=== PATIENT | male | born 1950 | race Caucasian/White ===

== ENCOUNTER → 2017-05-05 | Outpatient (CLI) | payer OTHER ==
[~2017-05-05] MED LIST: ASPIRIN 81M81 MG/TA2 PO; ASPRIN; BENADRYL; BENADRYL PO; CARDI-OMEGA1000 MG PO; CELEBREX 200MG200 MG PO; CIALIS PO; CIALIS10 MG PO; COUMADIN5 MG PO; DURAGESIC; EC NAPROSYN500 MG PO; FLEXERIL 1010 MG/TAB PO; FLEXERIL10 MG PO; HEPARIN 50500 U/5 ML IV; HYDROCODONE PO; LIORESAL 1010 MG/TAB PO; MIRALAX 17GM PK1 PKT PO; MORPHINE 1515 MG/TAB PO; MS CONTIN30 MG PO; MS CONTIN60 MG PO; NEURONTIN100 MG/CAP PO; NORMAL SALINE F10 ML IV; SENOKOT8.6 MG PO; SUPER EPA W/BO400 MG PO; TENORMIN 2525 MG/TAB PO; TENORMIN50 MG PO; TYLENOL 325MG325 MG PO; VANCOMYCIN 11 G/VIA1 IV; ZESTRIL5 MG PO; ZOCOR20 MG PO
== END ==
LOC: COL.RAD 12:07
DX: M48.061 Spinal stenosis, lumbar region without neurogenic claudication (principal); M47.816 Spondylosis without myelopathy or radiculopathy, lumbar region; M46.86 Other specified inflammatory spondylopathies, lumbar region; M43.16 Spondylolisthesis, lumbar region

== ENCOUNTER → 2017-06-09 | Outpatient (CLI) | payer OTHER ==
[~2017-06-09] VITALS: Ht 185.4 cm; Wt 119.0 kg
[~2017-06-09] MED LIST changes: +NORCO 325 MG-51 TAB PO; +SUPER BETA PROSTATE PO
[2017-06-09 13:38] VITALS: BP 144/92; PULSE 80
[2017-06-09 14:15] VITALS: BP 143/97; PULSE 73
== END ==
LOC: COL.RAD 06-05 12:45
DX: M51.36 Other intervertebral disc degeneration, lumbar region (principal)
CPT/HCPCS: J3301

== ENCOUNTER → 2017-06-27 | Outpatient (CLI) | payer OTHER ==
[~2017-06-27] VITALS: Ht 185.4 cm; Wt 118.0 kg
[~2017-06-27] MED LIST changes: +XANAX 0.5MG0.5 MG PO
[2017-06-27 09:27] VITALS: BP 135/84; PULSE 75
[2017-06-27 10:38] VITALS: BP 146/82; PULSE 69
== END ==
LOC: COL.RAD 09:10
DX: M51.36 Other intervertebral disc degeneration, lumbar region (principal); R20.0 Anesthesia of skin
CPT/HCPCS: J3301

== ENCOUNTER → 2017-09-19 | Outpatient (CLI) | payer OTHER | LOC: COL.LAB 10:57 | DX: Z01.818 Encounter for other preprocedural examination (principal) ==

== ENCOUNTER → 2018-05-07 | Outpatient (CLI) | payer OTHER | LOC: COL.VAS 07:29 | DX: R60.0 Localized edema (principal); M79.605 Pain in left leg ==

== ENCOUNTER → 2018-06-29 | Outpatient (CLI) | payer OTHER | LOC: COL.RAD 06-12 13:00 | DX: M25.512 Pain in left shoulder (principal); Z87.39 Personal history of other diseases of the musculoskeletal system and connective tissue; Z86.14 Personal history of Methicillin resistant Staphylococcus aureus infection ==

== ENCOUNTER 2020-07-05 04:13 | Inpatient (IN) | payer OTHER, MEDICARE ==
[2020-07-05] VITALS (7 sets, daily range): BP systolic 112–149; BP diastolic 54–89; PULSE 73–100; TEMP 97.8–103.1
[~2020-07-05] VITALS: Ht 185.4 cm; Wt 127.5 kg
[2020-07-05 04:28] LABS: BASO # 0.1 (0.0-0.2); BASO % 0.5 % (0.0-2.0); EOS # 0.1 (0.0-0.7); EOS % 0.5 % (0-4.0); GRAN # 8.1 (1.4-6.5); HEMATOCRIT 51.6 % (42.0-52.0); HEMOGLOBIN 17.7 g/dl (13.5-18.0); LYMPH # 0.8 (1.2-3.4); LYMPH % 7.8 % (20.0-51.0); MEAN CELL VOLUME 86 fl (80.0-100.0); MEAN CORPUSCULAR HEMOGLOBIN 29 pg (27.0-31.0); MEAN CORPUSCULAR HGB CONC 34 g/dl (33.0-37.0); MEAN PLATELET VOLUME 9.6 fl (7.4-10.4); MONO # 0.8 (0.1-0.6); MONO % 7.9 % (1.7-9.3); PLATELET COUNT 166 K/mm3 (130-400); RED BLOOD COUNT 6.02 M/mm3 (4.20-5.60); REDCELL DISTRIBUTION WIDTH-CV 12.6 % (11.5-14.5)
[2020-07-05 04:41] LABS: ALANINE AMINOTRANSFERASE 42 U/L (4-49); ALBUMIN 4.7 gm/dL (3.5-5.0); ALKALINE PHOSPHATASE 128 U/L (50-136); ANION GAP 11 mmol/L (7-16); AST,SGOT 40 U/L (15-37); BILIRUBIN,TOTAL 0.8 mg/dL (0.0-1.0); BLOOD UREA NITROGEN 15 mg/dL (9-20); CALCIUM 9.3 mg/dL (8.4-10.2); CARBON DIOXIDE 25 mmol/L (22-30); CHLORIDE 99 mmol/L (98-107); GLUCOSE 141 mg/dL (74-106); LIPASE 49 U/L (23-300); POTASSIUM 4.7 mmol/L (3.4-5.0); SODIUM 135 mmol/L (137-145); TOTAL PROTEIN 8.1 gm/dL (6.4-8.2)
[2020-07-05 04:55] LABS: TROPONIN-I < 0.012 ng/mL (0.000-0.035)
[2020-07-05 05:41] LABS: COLLECTION METHOD CLEAN CATCH
[2020-07-05 05:54] LABS: MUCOUS Present /lpf; PH 7 (5-8); SQUAMOUS EPITHELIAL 0-2 /hpf; URINE APPEARANCE Clear; URINE BACTERIA None Seen /hpf; URINE BILIRUBIN Negative (NEGATIVE); URINE BLOOD Negative (NEGATIVE); URINE COLOR Yellow; URINE GLUCOSE Negative (NEGATIVE); URINE KETONE Negative (NEGATIVE); URINE LEUKOCYTE ESTERASE Negative (NEGATIVE); URINE NITRATE Negative (NEGATIVE); URINE PROTEIN(semi-quant) 2+ (NEGATIVE); URINE RBC 0-2 /hpf; URINE UROBILINOGEN Negative (NEGATIVE)
[2020-07-06 04:10] VITALS: BP 100/51; PULSE 61; TEMP 98.9
[2020-07-06 06:21] LABS: BASO % 0.2 % (0.0-2.0); EOS # 0.1 (0.0-0.7); EOS % 0.3 % (0-4.0); GRAN # 18.5 (1.4-6.5); HEMATOCRIT 46.9 % (42.0-52.0); LYMPH # 0.7 (1.2-3.4); LYMPH % 3.5 % (20.0-51.0); MEAN CELL VOLUME 89 fl (80.0-100.0); MEAN CORPUSCULAR HGB CONC 33 g/dl (33.0-37.0); MEAN PLATELET VOLUME 10.3 fl (7.4-10.4); MONO # 1.3 (0.1-0.6); PLATELET COUNT 146 K/mm3 (130-400); RED BLOOD COUNT 5.29 M/mm3 (4.20-5.60); REDCELL DISTRIBUTION WIDTH-CV 13.2 % (11.5-14.5)
[2020-07-06 06:30] LABS: ALBUMIN 3.8 gm/dL (3.5-5.0); BILIRUBIN,TOTAL 1.4 mg/dL (0.0-1.0); CALCIUM 8.6 mg/dL (8.4-10.2); CREATININE, serum 2.2 (0.66-1.25); POTASSIUM 4.3 mmol/L (3.4-5.0); TOTAL PROTEIN 6.8 gm/dL (6.4-8.2)
[2020-07-06 06:33] LABS: HEMOGLOBIN 15.6 g/dl (13.5-18.0); MEAN CORPUSCULAR HEMOGLOBIN 29 pg (27.0-31.0)
[2020-07-06 07:36] VITALS: BP 99/59; PULSE 65; TEMP 97.7
[2020-07-06 13:10] VITALS: BP 160/62; PULSE 93; TEMP 99.2
== END 2020-07-06 14:50 | disposition short-term general hospital (02) | DRG 872 ==
LOC: COL.ER 04:13 → SURG 07:32
PROVIDERS: Emergency Medicine; Physician Assistant
DX: A41.1 Sepsis due to other specified staphylococcus (principal); N17.9 Acute kidney failure, unspecified; K59.00 Constipation, unspecified; K80.20 Calculus of gallbladder without cholecystitis without obstruction; G89.29 Other chronic pain; M54.9 Dorsalgia, unspecified; M19.90 Unspecified osteoarthritis, unspecified site; G47.00 Insomnia, unspecified; Z79.82 Long term (current) use of aspirin
CPT/HCPCS: 99222-AI; 99239; A9585; G0378; J0696; J1650; J1885; J2060; J2270; J2360; J2543; J3010; J3370; J3480; J7030; J7050; Q9967